=== PATIENT | female | born 1980 | race Caucasian/White ===

== ENCOUNTER 2024-11-27 20:30 | Emergency (ER) | payer BC ==
[~2024-11-27] VITALS: Ht 170 cm; Wt 81.8 kg
[2024-11-27] MEDS ORDERED: Acetaminophen 500 MG TAB PO ONE (21:15)
[2024-11-27 21:54] VITALS: BP 115/95
== END 2024-11-27 21:54 | disposition home or self-care (01) ==
LOC: ED 20:30
DX: S61.411A Laceration without foreign body of right hand, initial encounter (principal); W01.198A Fall on same level from slipping, tripping and stumbling with subsequent striking against other object, initial encounter; Y93.89 Activity, other specified